=== PATIENT | male | born 1980 | race Asian ===

== ENCOUNTER 2018-05-29 21:30 | Emergency (ER) | payer SELFPAY ==
[~2018-05-29] VITALS: Ht 182.9 cm; Wt 85.6 kg
[2018-05-29 21:32] VITALS: BP 129/61; PULSE 80; RESP 19; Ht 182.9 cm; Wt 85.6 kg
== END 2018-05-30 00:33 | disposition left against medical advice (07) ==
LOC: FTE 21:30
DX: Z53.21 Procedure and treatment not carried out due to patient leaving prior to being seen by health care provider (principal)